=== PATIENT | male | born 1995 | race Caucasian/White ===

== ENCOUNTER 2017-07-01 02:16 | Emergency (ER) | payer SELFPAY ==
[~2017-07-01] VITALS: Ht 190.5 cm; Wt 109.9 kg
[2017-07-01 03:06] LABS: HEMATOCRIT 44.4 % (39.2-51.8); WHITE BLOOD COUNT 12.9 x10^3/uL (3.4-10)
[2017-07-01 03:15] LABS: BLOOD UREA NITROGEN 15 mg/dL (7-18)
[2017-07-01 03:19] LABS: ASPARTATE AMINO TRANSFERASE 20 U/L (15-37)
[2017-07-01 03:41] VITALS: BP 164/86
== END 2017-07-01 03:44 | disposition home or self-care (01) ==
LOC: ED 03:38
DX: Z76.0 Encounter for issue of repeat prescription (principal); I10 Essential (primary) hypertension
CPT/HCPCS: 36415; 80053; 85025; 99284

== ENCOUNTER 2020-01-02 15:38 | Emergency (ER) | payer OTHER ==
[~2020-01-02] VITALS: Ht 182.9 cm; Wt 124.2 kg
--- NOTE | 2020-01-02 16:10 | NUR ---
PT PRESENTING FOR HTN. STS WAS ON LISINIPRIL WHICH FELT WAS WORKING BUT DEVELOPED A COUGH, WAS SWITCHED TO AMLODIPINE WHICH ISNT EFFECTIVE. HASNT TAKEN MEDS TODAY. 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 CONNECTED TO ALL MONITORING, TACHY HR AND HTN NOTED. PT SPEAKING QUICKLY, RESTLESS, ANXIOUS BEHAVIOR. CALL LIGHT WITHIN REACH
--- NOTE | 2020-01-02 16:11 | NUR ---
PA AT BEDSIDE FOR ASSESSMENT AT THIS TIME. AWAITING ORDERS
[2020-01-02 16:33] LABS: BASOPHILS # (AUTO) 0.03 x10^3/uL (0-0.1); BASOPHILS % (AUTO) 0 % (0-1); EOSINOPHILS # (AUTO) 0.43 x10^3/uL (0-0.4); EOSINOPHILS % (AUTO) 5 % (1-7); LYMPHOCYTES # (AUTO) 1.71 x10^3/uL (1-3.4); LYMPHOCYTES % (AUTO) 20 % (22-44); MD NO; MEAN CORPUSCULAR HEMOGLOBIN 27.8 pg (27.5-34.5); MEAN CORPUSCULAR HGB CONC 33.7 g/dL (33.2-36.2); MEAN CORPUSCULAR VOLUME 82.6 fL (81-97); MEAN PLATELET VOLUME 7.9 fL (7.4-10.4); MONOCYTES # (AUTO) 0.56 x10^3/uL (0.2-0.8); MONOCYTES % (AUTO) 7 % (2-9); NEUTROPHILS # (AUTO) 5.88 x10^3/uL (1.8-6.8); NEUTROPHILS % (AUTO) 68 % (42-75); PLATELET COUNT 276 x10^3/uL (130-400); RED CELL DISTRIBUTION WIDTH 13.7 % (9.4-14.8)
[2020-01-02 16:38] VITALS: BP 144/94
[2020-01-02 16:43] LABS: ALBUMIN 4.2 g/dL (3.4-5.0); ANION GAP 7 mmol/L (5-15); CALCIUM 9.2 mg/dL (8.5-10.1); CHLORIDE 105 mmol/L (98-107); CREATININE 1.08 mg/dL (0.7-1.3)
--- NOTE | 2020-01-02 16:45 | NUR ---
ALL LABS BACK AT THIS TIME, CHART UP FOR RECHECK
== END 2020-01-02 17:03 | disposition home or self-care (01) ==
LOC: ED 16:00
DX: F10.20 Alcohol dependence, uncomplicated (principal); I10 Essential (primary) hypertension; F41.1 Generalized anxiety disorder; Y90.9 Presence of alcohol in blood, level not specified; Z72.9 Problem related to lifestyle, unspecified
CPT/HCPCS: 36415; 80048; 82040; 85025; 99283